=== PATIENT | male | born 1950 | race Caucasian/White ===

== ENCOUNTER → 2017-10-07 | Outpatient (CLI) | payer MEDICARE, OTHER ==
[~2017-10-07] MED LIST: CENTRUM1 TAB PO; CO ENZYME Q-1050 MG PO; FLAXSEED MEAL1 POW; PRINIVIL20 MG PO; RED KRILL OIL PO; [UNRECOGNIZED DRUG - OTHER] PO
[2017-10-07 16:28] LABS: BASO # 0.1 (0.0-0.2); BASO % 1.4 % (0.0-2.0); EOS # 0.3 (0.0-0.7); GRAN # 3.2 (1.4-6.5); GRAN % 48.2 % (42.2-75.2); HEMATOCRIT 45.9 % (42.0-52.0); HEMOGLOBIN 15.3 g/dl (13.5-18.0); LYMPH # 2.4 (1.2-3.4); LYMPH % 36.4 % (20.0-51.0); MEAN CELL VOLUME 91 fl (80.0-100.0); MEAN CORPUSCULAR HEMOGLOBIN 30 pg (27.0-31.0); MEAN CORPUSCULAR HGB CONC 33 g/dl (33.0-37.0); MEAN PLATELET VOLUME 9.4 fl (7.4-10.4); MONO # 0.6 (0.1-0.6); MONO % 8.5 % (1.7-9.3); PLATELET COUNT 221 K/mm3 (130-400); RED BLOOD COUNT 5.07 M/mm3 (4.20-5.60); REDCELL DISTRIBUTION WIDTH-CV 13.2 % (11.5-14.5)
[2017-10-07 16:35] LABS: ALBUMIN 4.5 gm/dL (3.5-5.0); BILIRUBIN,TOTAL 0.7 mg/dL (0.0-1.0); CALCIUM 9.7 mg/dL (8.4-10.2); CHOLESTEROL RISK RATIO 5.9; CREATININE, serum 1.14 mg/dL (0.66-1.25); POTASSIUM 4.3 mmol/L (3.4-5.0); TOTAL PROTEIN 8.2 gm/dL (6.4-8.2); URIC ACID 8.2 mg/dL (3.5-8.5)
== END ==
LOC: COL.LAB 13:47
PROVIDERS: Family Medicine
DX: M10.9 Gout, unspecified (principal); I10 Essential (primary) hypertension

== ENCOUNTER 2018-02-01 12:04 | Emergency (ER) | payer MEDICARE ==
[~2018-02-01] VITALS: Ht 175.3 cm; Wt 113.6 kg
[2018-02-01 13:01] LABS: BASO # 0.1 (0.0-0.2); BASO % 0.4 % (0.0-2.0); EOS % 0.1 % (0-4.0); GRAN # 10.2 (1.4-6.5); GRAN % 85.3 % (42.2-75.2); HEMATOCRIT 44.9 % (42.0-52.0); HEMOGLOBIN 15.5 g/dl (13.5-18.0); LYMPH # 0.8 (1.2-3.4); LYMPH % 6.5 % (20.0-51.0); MEAN CELL VOLUME 86 fl (80.0-100.0); MEAN CORPUSCULAR HEMOGLOBIN 30 pg (27.0-31.0); MEAN CORPUSCULAR HGB CONC 35 g/dl (33.0-37.0); MEAN PLATELET VOLUME 8.2 fl (7.4-10.4); MONO # 0.9 (0.1-0.6); MONO % 7.1 % (1.7-9.3); PLATELET COUNT 172 K/mm3 (130-400); RED BLOOD COUNT 5.24 M/mm3 (4.20-5.60); REDCELL DISTRIBUTION WIDTH-CV 12.5 % (11.5-14.5)
[2018-02-01 13:12] LABS: ALBUMIN 4.4 gm/dL (3.5-5.0); BILIRUBIN,TOTAL 0.8 mg/dL (0.0-1.0); C-REACTIVE PROTEIN 5.6 mg/dL (0.0-0.9); CALCIUM 9.5 mg/dL (8.4-10.2); CREATININE, serum 1.13 mg/dL (0.66-1.25); POTASSIUM 4.3 mmol/L (3.4-5.0); TOTAL PROTEIN 8.1 gm/dL (6.4-8.2)
[2018-02-01] MEDS ORDERED: COZAAR100 MG PO (13:16)
[2018-02-01 13:21] LABS: TROPONIN-I 0.03 ng/mL (0.000-0.034)
[2018-02-01] MEDS ORDERED: LEVAQUIN 5500 MG/TA1 PO (14:00)
[2018-02-01 14:16] VITALS: BP 171/95; PULSE 92; TEMP 97.7
== END 2018-02-01 14:17 | disposition home or self-care (01) ==
LOC: COL.ER 12:04
PROVIDERS: Emergency Medicine
DX: J18.1 Lobar pneumonia, unspecified organism (principal); I10 Essential (primary) hypertension
CPT/HCPCS: J7030

== ENCOUNTER 2018-03-17 09:00 | Outpatient (RCR) | payer MEDICARE ==
[2018-02-11 10:16] LABS: HEMATOCRIT 41.7 % (42.0-52.0); MEAN CELL VOLUME 89 fl (80.0-100.0); MEAN CORPUSCULAR HEMOGLOBIN 30 pg (27.0-31.0); MEAN CORPUSCULAR HGB CONC 34 g/dl (33.0-37.0); MEAN PLATELET VOLUME 8.4 fl (7.4-10.4); PLATELET COUNT 318 K/mm3 (130-400); RED BLOOD COUNT 4.67 M/mm3 (4.20-5.60); REDCELL DISTRIBUTION WIDTH-CV 13.3 % (11.5-14.5)
[2018-02-11 10:19] LABS: ALBUMIN 4.1 gm/dL (3.5-5.0); BILIRUBIN,TOTAL 0.7 mg/dL (0.0-1.0); CALCIUM 9.4 mg/dL (8.4-10.2); POTASSIUM 4.2 mmol/L (3.4-5.0); TOTAL PROTEIN 7.8 gm/dL (6.4-8.2)
[2018-02-11 10:20] VITALS: BP 142/75; PULSE 77; TEMP 97.4
[2018-02-12 09:30] VITALS: BP 121/66; PULSE 78; TEMP 97.3
[2018-02-13 08:59] VITALS: BP 123/82; PULSE 68; TEMP 97.4
--- NOTE | 2018-02-14 09:50 | NUR ---
PICC intact right upper arm with sterile dressing change done with insertion site cleansed with chloraprep x 1, skin prep, stat lock, and tegaderm applied. no signs or symptoms of IV complications noted. no concerns voiced. re-wrapped with marissa to protect catheter.
[2018-02-14 10:07] VITALS: BP 127/68; PULSE 69; TEMP 97.7
[2018-02-15 09:04] VITALS: BP 111/69; PULSE 66; TEMP 97.2
[2018-02-16 08:48] VITALS: BP 130/72; PULSE 71; TEMP 96.9
[2018-02-17 09:07] VITALS: BP 130/67; PULSE 70; TEMP 97.7
[2018-02-18 09:16] VITALS: BP 131/68; PULSE 64; TEMP 97.9
[2018-02-18 09:21] LABS: HEMATOCRIT 41.4 % (42.0-52.0); HEMOGLOBIN 13.5 g/dl (13.5-18.0); MEAN CELL VOLUME 90 fl (80.0-100.0); MEAN CORPUSCULAR HEMOGLOBIN 29 pg (27.0-31.0); MEAN CORPUSCULAR HGB CONC 33 g/dl (33.0-37.0); MEAN PLATELET VOLUME 8.7 fl (7.4-10.4); PLATELET COUNT 270 K/mm3 (130-400); RED BLOOD COUNT 4.59 M/mm3 (4.20-5.60)
[2018-02-18 09:33] LABS: ALBUMIN 4.1 gm/dL (3.5-5.0); BILIRUBIN,TOTAL 0.6 mg/dL (0.0-1.0); CALCIUM 9.4 mg/dL (8.4-10.2); CREATININE, serum 1.1 mg/dL (0.66-1.25); POTASSIUM 4.3 mmol/L (3.4-5.0); TOTAL PROTEIN 7.7 gm/dL (6.4-8.2)
[2018-02-19 08:46] VITALS: BP 117/70; PULSE 66; TEMP 97.6
[2018-02-20 09:05] VITALS: BP 145/76; PULSE 65; TEMP 97.9
[2018-02-21 07:48] VITALS: BP 121/73; PULSE 63; TEMP 97.6
--- NOTE | 2018-02-21 08:10 | NUR ---
PICC intact right upper arm with sterile dressing change done with insertion site cleansed with chloraprep x 1, skin prep, stat lock, and tegaderm applied. no signs or symptoms of IV complications noted. no concerns voiced. wrapped with marissa to protect catheter.
[2018-02-22 07:48] VITALS: BP 139/76; PULSE 64; TEMP 97.5
[2018-02-23 07:52] VITALS: BP 150/74; PULSE 71; TEMP 97.3
[2018-02-24 09:30] VITALS: BP 133/75; PULSE 63; TEMP 98
[2018-02-25 08:36] VITALS: BP 133/64; PULSE 64; TEMP 97.5
[2018-02-25 08:43] LABS: BASO # 0.1 (0.0-0.2); BASO % 1.7 % (0.0-2.0); EOS # 0.5 (0.0-0.7); EOS % 8.5 % (0-4.0); GRAN # 2.4 (1.4-6.5); GRAN % 44.5 % (42.2-75.2); HEMATOCRIT 40.3 % (42.0-52.0); HEMOGLOBIN 13.4 g/dl (13.5-18.0); LYMPH # 2.1 (1.2-3.4); LYMPH % 38.1 % (20.0-51.0); MEAN CELL VOLUME 90 fl (80.0-100.0); MEAN CORPUSCULAR HEMOGLOBIN 30 pg (27.0-31.0); MEAN CORPUSCULAR HGB CONC 33 g/dl (33.0-37.0); MEAN PLATELET VOLUME 8.9 fl (7.4-10.4); MONO # 0.4 (0.1-0.6); PLATELET COUNT 182 K/mm3 (130-400); RED BLOOD COUNT 4.48 M/mm3 (4.20-5.60); REDCELL DISTRIBUTION WIDTH-CV 14.2 % (11.5-14.5)
[2018-02-25 08:58] LABS: ALANINE AMINOTRANSFERASE 53 U/L (21-72); ALBUMIN 4.1 gm/dL (3.5-5.0); ALKALINE PHOSPHATASE 70 U/L (50-136); ANION GAP 6 mmol/L (7-16); AST,SGOT 31 U/L (15-37); BILIRUBIN,TOTAL 0.5 mg/dL (0.0-1.0); BLOOD UREA NITROGEN 16 mg/dL (9-20); CALCIUM 9.3 mg/dL (8.4-10.2); CARBON DIOXIDE 28 mmol/L (22-30); CHLORIDE 107 mmol/L (98-107); CREATINE KINASE 202 U/L (55-170); CREATININE, serum 1.13 mg/dL (0.66-1.25); GLUCOSE 201 mg/dL (74-106); POTASSIUM 4.2 mmol/L (3.4-5.0); SODIUM 140 mmol/L (137-145); TOTAL PROTEIN 7.4 gm/dL (6.4-8.2)
[2018-02-25 09:03] LABS: C-REACTIVE PROTEIN < 0.5 mg/dL (0.0-0.9)
[2018-02-25 09:53] LABS: ERYTHROCYTE SEDIMENTATION RATE 7 mm/hr (0-30)
[2018-02-26 09:09] VITALS: BP 135/72; PULSE 60; TEMP 97.8
[2018-02-27 08:56] VITALS: BP 128/66; PULSE 67; TEMP 97.7
--- NOTE | 2018-02-28 09:00 | NUR ---
PICC intact right upper arm. With sterile technique right upper arm PICC dressing change done with insertion site cleansed with ChloraPrep 1, skin prep, StatLock, and Tegaderm applied. No signs or symptoms of IV complications noted. No concerns voiced. Arm wrapped with John to protect catheter. To continue with cares in the express unit.
[2018-02-28 09:09] VITALS: BP 143/79; PULSE 60; TEMP 97.9
[2018-03-01 08:12] VITALS: BP 131/62; PULSE 63; TEMP 97.5
[2018-03-02 08:42] VITALS: BP 140/78; PULSE 63; TEMP 97.7
[2018-03-03 09:55] VITALS: BP 112/73; PULSE 67; TEMP 98.4
[2018-03-03 09:55] LABS: BASO # 0.1 (0.0-0.2); BASO % 1.1 % (0.0-2.0); EOS # 0.4 (0.0-0.7); EOS % 6.4 % (0-4.0); GRAN # 3.4 (1.4-6.5); GRAN % 52.9 % (42.2-75.2); HEMATOCRIT 40.4 % (42.0-52.0); HEMOGLOBIN 13.4 g/dl (13.5-18.0); LYMPH # 2.1 (1.2-3.4); LYMPH % 32.3 % (20.0-51.0); MEAN CELL VOLUME 90 fl (80.0-100.0); MEAN CORPUSCULAR HEMOGLOBIN 30 pg (27.0-31.0); MEAN CORPUSCULAR HGB CONC 33 g/dl (33.0-37.0); MEAN PLATELET VOLUME 9.1 fl (7.4-10.4); MONO # 0.5 (0.1-0.6); PLATELET COUNT 178 K/mm3 (130-400); REDCELL DISTRIBUTION WIDTH-CV 14.2 % (11.5-14.5)
[2018-03-03 10:04] LABS: ALBUMIN 4.2 gm/dL (3.5-5.0); BILIRUBIN,TOTAL 0.6 mg/dL (0.0-1.0); C-REACTIVE PROTEIN 0.7 mg/dL (0.0-0.9); CALCIUM 9.5 mg/dL (8.4-10.2); CREATININE, serum 1.06 mg/dL (0.66-1.25); POTASSIUM 4.2 mmol/L (3.4-5.0); TOTAL PROTEIN 7.6 gm/dL (6.4-8.2)
[2018-03-03 10:23] LABS: ERYTHROCYTE SEDIMENTATION RATE 13 mm/hr (0-30)
[2018-03-04 09:13] VITALS: BP 125/60; PULSE 64; TEMP 97.5
[2018-03-05 08:53] VITALS: BP 121/70; PULSE 68; TEMP 97.7
[2018-03-06 08:29] VITALS: BP 124/68; PULSE 60; TEMP 97.4
[2018-03-07 08:58] VITALS: BP 119/69; PULSE 53; TEMP 97.5
[2018-03-08 08:15] VITALS: BP 120/70; PULSE 51; TEMP 97.6
[2018-03-09 08:30] VITALS: BP 148/60; PULSE 71; TEMP 97.8
[2018-03-10 08:28] VITALS: BP 130/76; PULSE 65; TEMP 96.7
[2018-03-10 08:35] LABS: BASO # 0.1 (0.0-0.2); BASO % 1.2 % (0.0-2.0); EOS # 0.4 (0.0-0.7); EOS % 6.6 % (0-4.0); GRAN # 3.3 (1.4-6.5); GRAN % 49.7 % (42.2-75.2); HEMATOCRIT 42.2 % (42.0-52.0); HEMOGLOBIN 14.2 g/dl (13.5-18.0); LYMPH # 2.2 (1.2-3.4); LYMPH % 34.3 % (20.0-51.0); MEAN CELL VOLUME 89 fl (80.0-100.0); MEAN CORPUSCULAR HEMOGLOBIN 30 pg (27.0-31.0); MEAN CORPUSCULAR HGB CONC 34 g/dl (33.0-37.0); MEAN PLATELET VOLUME 8.6 fl (7.4-10.4); MONO # 0.5 (0.1-0.6); MONO % 7.7 % (1.7-9.3); PLATELET COUNT 216 K/mm3 (130-400); RED BLOOD COUNT 4.73 M/mm3 (4.20-5.60); REDCELL DISTRIBUTION WIDTH-CV 13.9 % (11.5-14.5)
[2018-03-10 08:48] LABS: ALANINE AMINOTRANSFERASE 48 U/L (21-72); ALBUMIN 4.2 gm/dL (3.5-5.0); ALKALINE PHOSPHATASE 57 U/L (50-136); ANION GAP 6 mmol/L (7-16); AST,SGOT 42 U/L (15-37); BILIRUBIN,TOTAL 0.5 mg/dL (0.0-1.0); BLOOD UREA NITROGEN 12 mg/dL (9-20); CALCIUM 9.5 mg/dL (8.4-10.2); CARBON DIOXIDE 28 mmol/L (22-30); CHLORIDE 106 mmol/L (98-107); CREATINE KINASE 357 U/L (55-170); CREATININE, serum 1.06 mg/dL (0.66-1.25); GLUCOSE 197 mg/dL (74-106); POTASSIUM 4.4 mmol/L (3.4-5.0); SODIUM 140 mmol/L (137-145); TOTAL PROTEIN 7.8 gm/dL (6.4-8.2)
[2018-03-10 08:53] LABS: C-REACTIVE PROTEIN < 0.5 mg/dL (0.0-0.9)
[2018-03-10 08:56] LABS: ERYTHROCYTE SEDIMENTATION RATE 10 mm/hr (0-30)
[2018-03-11 08:41] VITALS: BP 127/66; PULSE 68; TEMP 97
[2018-03-12 08:59] VITALS: BP 136/76; PULSE 67; TEMP 98.1
[2018-03-13 08:33] VITALS: BP 120/54; PULSE 66; TEMP 97.5
[2018-03-14 08:56] VITALS: BP 137/83; PULSE 58; TEMP 97.7
[2018-03-15 07:54] VITALS: BP 152/74; PULSE 60; TEMP 97.7
[2018-03-16 07:20] VITALS: BP 174/71; PULSE 60; TEMP 97.6
[~2018-03-17] VITALS: Ht 175.3 cm; Wt 110.0 kg
[2018-03-17 08:58] LABS: BASO # 0.1 (0.0-0.2); BASO % 1.3 % (0.0-2.0); EOS # 0.3 (0.0-0.7); EOS % 5.4 % (0-4.0); GRAN # 3.3 (1.4-6.5); GRAN % 52.1 % (42.2-75.2); HEMATOCRIT 39.4 % (42.0-52.0); HEMOGLOBIN 13.4 g/dl (13.5-18.0); LYMPH # 2.2 (1.2-3.4); LYMPH % 34.6 % (20.0-51.0); MEAN CELL VOLUME 89 fl (80.0-100.0); MEAN CORPUSCULAR HEMOGLOBIN 30 pg (27.0-31.0); MEAN CORPUSCULAR HGB CONC 34 g/dl (33.0-37.0); MEAN PLATELET VOLUME 8.7 fl (7.4-10.4); MONO # 0.4 (0.1-0.6); MONO % 6.4 % (1.7-9.3); PLATELET COUNT 204 K/mm3 (130-400); RED BLOOD COUNT 4.43 M/mm3 (4.20-5.60); REDCELL DISTRIBUTION WIDTH-CV 13.7 % (11.5-14.5)
[~2018-03-17 09:00] MED LIST changes: +COZAAR100 MG PO; +CUBICIN 500MG500 MG IV; +LEVAQUIN 5500 MG/TA1 PO; +PROCARDIA XL90 MG PO; +TRANDATE 100MG100 MG PO
[2018-03-17 09:07] LABS: ALANINE AMINOTRANSFERASE 44 U/L (21-72); ALBUMIN 4.1 gm/dL (3.5-5.0); ALKALINE PHOSPHATASE 60 U/L (50-136); ANION GAP 7 mmol/L (7-16); AST,SGOT 39 U/L (15-37); BILIRUBIN,TOTAL 0.5 mg/dL (0.0-1.0); BLOOD UREA NITROGEN 10 mg/dL (9-20); CALCIUM 9.2 mg/dL (8.4-10.2); CARBON DIOXIDE 29 mmol/L (22-30); CHLORIDE 105 mmol/L (98-107); CREATINE KINASE 522 U/L (55-170); CREATININE, serum 1.16 mg/dL (0.66-1.25); GLUCOSE 191 mg/dL (74-106); POTASSIUM 4.1 mmol/L (3.4-5.0); SODIUM 140 mmol/L (137-145); TOTAL PROTEIN 7.4 gm/dL (6.4-8.2)
[2018-03-17 09:08] LABS: C-REACTIVE PROTEIN < 0.5 mg/dL (0.0-0.9)
[2018-03-17 09:13] VITALS: BP 139/67; PULSE 56; TEMP 97.8
[2018-03-17 09:20] LABS: ERYTHROCYTE SEDIMENTATION RATE 6 mm/hr (0-30)
== END 2018-03-17 18:24 | disposition home or self-care (01) ==
LOC: EUO 09:00
PROVIDERS: Hospitalist; Internal Medicine Infectious Disease
DX: J15.211 Pneumonia due to Methicillin susceptible Staphylococcus aureus (principal); I38 Endocarditis, valve unspecified; Z79.2 Long term (current) use of antibiotics; Z45.2 Encounter for adjustment and management of vascular access device; Z48.00 Encounter for change or removal of nonsurgical wound dressing
CPT/HCPCS: J0878

== ENCOUNTER 2018-04-04 09:00 | Outpatient (RCR) | payer MEDICARE ==
[2018-03-18 08:33] VITALS: BP 146/85; PULSE 63; TEMP 97.5
[2018-03-19 08:12] VITALS: BP 151/74; PULSE 62; TEMP 98.5
[2018-03-20 08:16] VITALS: BP 154/82; PULSE 59; TEMP 97.5
[2018-03-21 08:13] VITALS: BP 188/105; PULSE 57; TEMP 97.9
--- NOTE | 2018-03-21 08:20 | NUR ---
PICC intact right upper arm. With sterile technique right upper arm PICC dressing change done with insertion site cleansed with ChloraPrep 1, skin prep, StatLock, and Tegaderm. applied no signs or symptoms of IV complications noted.no concerns voiced. Arm wrapped with John to protect catheter. Patient will continue with cares at express unit.
[2018-03-22 07:52] VITALS: BP 142/75; PULSE 63; TEMP 97.5
[2018-03-23 07:42] VITALS: BP 147/72; PULSE 84; TEMP 97.4
[2018-03-24 10:00] VITALS: BP 150/72; PULSE 82; TEMP 98.1
[2018-03-24 10:25] LABS: BASO # 0.1 (0.0-0.2); BASO % 1.3 % (0.0-2.0); EOS # 0.4 (0.0-0.7); EOS % 5.7 % (0-4.0); GRAN # 3.3 (1.4-6.5); GRAN % 47.6 % (42.2-75.2); HEMATOCRIT 41.3 % (42.0-52.0); LYMPH # 2.4 (1.2-3.4); LYMPH % 35.5 % (20.0-51.0); MEAN CELL VOLUME 89 fl (80.0-100.0); MEAN CORPUSCULAR HEMOGLOBIN 30 pg (27.0-31.0); MEAN CORPUSCULAR HGB CONC 34 g/dl (33.0-37.0); MEAN PLATELET VOLUME 8.7 fl (7.4-10.4); MONO # 0.7 (0.1-0.6); MONO % 9.6 % (1.7-9.3); PLATELET COUNT 200 K/mm3 (130-400); RED BLOOD COUNT 4.65 M/mm3 (4.20-5.60); REDCELL DISTRIBUTION WIDTH-CV 13.6 % (11.5-14.5)
[2018-03-24 10:38] LABS: ALBUMIN 4.2 gm/dL (3.5-5.0); BILIRUBIN,TOTAL 0.7 mg/dL (0.0-1.0); CALCIUM 9.6 mg/dL (8.4-10.2); CREATININE, serum 1.07 mg/dL (0.66-1.25); POTASSIUM 4.4 mmol/L (3.4-5.0); TOTAL PROTEIN 7.6 gm/dL (6.4-8.2)
[2018-03-24 10:49] LABS: ERYTHROCYTE SEDIMENTATION RATE 4 mm/hr (0-30)
[2018-03-28 12:05] VITALS: BP 133/60; PULSE 59; TEMP 97.7
--- NOTE | 2018-03-28 12:10 | NUR ---
PICC intact right upper arm with sterile dressing change done with insertion site cleansed with chloraprep x 1, skin prep, stat lock, and tegaderm applied. no signs or symptoms of IV complications noted. no concerns voiced. re-wrapped with marissa to protect catheter. to return on Saturday.
[~2018-04-04] VITALS: Ht 175.3 cm; Wt 114.0 kg
[2018-04-04 09:25] VITALS: BP 139/74; PULSE 61; TEMP 97.7
--- NOTE | 2018-04-04 09:25 | NUR ---
here for PICC cares. With sterile technique right upper arm PICC dressing change done with insertion site cleansed with ChloraPrep 1, chlorhexidine impregnated disc applied, skin prep, StatLock, and Tegaderm applied. Due to symptoms of IV complications noted. No concerns voiced. Patient has a doctor's appointment today. Arm wrapped with John to protect catheter.
--- NOTE | 2018-04-04 11:20 | NUR ---
Pt arjun PICC removal well. Pt discharged per ambulation with .
== END 2018-04-04 17:30 | disposition home or self-care (01) ==
LOC: EUO 09:00
PROVIDERS: Internal Medicine Infectious Disease
DX: J15.211 Pneumonia due to Methicillin susceptible Staphylococcus aureus (principal); I38 Endocarditis, valve unspecified; Z45.2 Encounter for adjustment and management of vascular access device; Z95.9 Presence of cardiac and vascular implant and graft, unspecified; Z48.00 Encounter for change or removal of nonsurgical wound dressing
CPT/HCPCS: J0878